=== PATIENT | female | born 1935 | race Caucasian/White ===

== ENCOUNTER 2018-12-16 12:13 | Inpatient (IN) | payer MEDICARE ==
[~2018-12-16] VITALS: Ht 152.4 cm; Wt 67.9 kg
[2018-12-16] MEDS ORDERED: SOD CHLORIDE 0.9% 1,000 ML IV STA (13:05)
[2018-12-16] MEDS ORDERED: OLME40TA13 PO (13:43)
[2018-12-16] MEDS ORDERED: SIMV20TA PO (13:44)
[2018-12-16] MEDS ORDERED: METO-336 PO (13:44)
[2018-12-16] MEDS ORDERED: LEVO75TA5 PO (13:44)
--- NOTE | 2018-12-16 15:46 | ERD ---
ER Documentation Chief Complaint Chief Complaint R droop x 3 days, L arm weakness, and dizzy hx bells palsey HPI This is a 83-year-old female who is complaining of left facial weakness and slurred speech. The patient says she has a history of chronic permanent right- sided Chapin's palsy, she said 3 days ago she woke up and she had weakness in the left face but no extremity symptoms and it seems like she had slurry speech. She lives alone. Her friend came over to visit her to check on her, and noticed that her face was weak and that she was not moving her left arm however the patient denies any weakness or numbness in her extremities. Denies any headache. Denies any fall or trauma or syncope ROS All systems reviewed and are negative except as per history of present illness. Medications Home Meds Reported Medications Metoprolol Succinate* (Toprol XL*) 100 Mg Tab.sr.24h, 100 MG PO DAILY, #30 TAB 12/16/18 Simvastatin* (Zocor*) 20 Mg Tablet, 20 MG PO QHS, #30 TAB 12/16/18 Levothyroxine Sodium* (Levothyroxine Sodium*) 75 Mcg Tablet, 75 MCG PO BEFORE BREAKFAST, #30 TAB 12/16/18 Olmesartan Medoxomil (Benicar) 40 Mg Tablet, 40 MG PO DAILY, #30 TAB 12/16/18 Allergies Allergies: Coded Allergies: No Known Allergy (Unverified , 12/16/18) PMhx/Soc History of Surgery: Yes (Alejandra MENDEZ (1991)) Anesthesia Reaction: No Hx Neurological Disorder: Yes (BELLS PALSY) Hx Respiratory Disorders: No Hx Psychiatric Problems: No Hx Miscellaneous Medical Probl: Yes (HYPOTHYROIDISM) Hx Alcohol Use: No Hx Substance Use: No Hx Tobacco Use: No Smoking Status: Never smoker FmHx Family History: No coronary disease Physical Exam Vitals Vital Signs Date Temp Pulse Resp B/P (MAP) Pulse Ox O2 O2 Flow FiO2 Time Delivery Rate 12/16/18 60 14 162/83 100 Room Air 13:14 (109) 12/16/18 98.1 60 16 154/82 96 12:18 (106) Physical Exam Const: Well-developed, well-nourished Head: Atraumatic, normocephalic Eyes: Normal Conjunctiva, PERRLA, EOMI, normal sclera, no nystagmus ENT: Normal External Ears, Nose and Mouth, moist mucus membranes. Neck: Full range of motion. No meningismus, no lymphadenopathy. Resp: Clear to auscultation bilaterally, no wheezing, rhonchi, rales Cardio: Regular rate and rhythm, no murmurs, S1 S2 present Abd: Soft, non tender x 4, non distended. Normal bowel sounds, no guarding or rebound, no pulsitile abdominal masses or bruits Skin: No petechiae or rashes, no ecchymosis , no maculopapular rash Back: No midline or flank tenderness Ext: No cyanosis, or edema, FROM x 4, right face paralysis, left face is as if her left side is stuck in a half smile position she is unable to pucker up or really smile any further. She does have some dysarthria but it may be due to facial positioning, neurovascularly intact x 4 Neur: Awake and alert, STR 5/5 x 4, sensation intact x 4, no focal findings, cerebellum intact Psych: Normal Mood and Affect Result Diagram: 12/16/18 1303 12/16/18 1303 Results 24 hrs Laboratory Tests Test 12/16/18 13:03 White Blood Count 8.1 10^3/ul Red Blood Count 4.40 10^6/ul Hemoglobin 12.4 g/dl Hematocrit 38.0 % Mean Corpuscular Volume 86.4 fl Mean Corpuscular Hemoglobin 28.2 pg Mean Corpuscular Hemoglobin Concent 32.6 g/dl Red Cell Distribution Width 14.4 % Platelet Count 177 10^3/UL Mean Platelet Volume 11.5 fl Immature Granulocytes % 0.400 % Neutrophils % 54.3 % Lymphocytes % 27.8 % Monocytes % 10.7 % Eosinophils % 5.8 % Basophils % 1.0 % Nucleated Red Blood Cells % 0.0 /100WBC Immature Granulocytes # 0.030 10^3/ul Neutrophils # 4.4 10^3/ul Lymphocytes # 2.3 10^3/ul Monocytes # 0.9 10^3/ul Eosinophils # 0.5 10^3/ul Basophils # 0.1 10^3/ul Nucleated Red Blood Cells # 0.0 10^3/ul Sodium Level 143 mmol/L Potassium Level 4.3 mmol/L Chloride Level 110 mmol/L Carbon Dioxide Level 23 mmol/L Anion Gap 10 Blood Urea Nitrogen 23 mg/dl Creatinine 0.87 mg/dl Est Glomerular Filtrat Rate mL/min mL/min Glucose Level 92 mg/dl Calcium Level 9.4 mg/dl Total Bilirubin 0.7 mg/dl Direct Bilirubin 0.00 mg/dl Indirect Bilirubin 0.7 mg/dl Aspartate Amino Transf (AST/SGOT) 34 IU/L Alanine Aminotransferase (ALT/SGPT) 29 IU/L Alkaline Phosphatase 43 IU/L Total Protein 7.4 g/dl Albumin 4.3 g/dl Globulin 3.10 g/dl Albumin/Globulin Ratio 1.38 Current Medications Medications Dose Sig/Alistair Start Time Status Last (Trade) Ordered Route PRN Stop Time Admin Dose Reason Admin Sodium 1,000 ml @ Q1H STAT 12/16/18 DC 12/16/18 Chloride 1,000 mls/hr IV 13:05 13:13 12/16/18 14:04 Procedures/[place] [id number] Radiology Main Line: [phone] DIAGNOSTIC IMAGING REPORT Patient: JOE GOSS : 1935 Age: 83 Sex: F MR #: [id number] DOS: 12/16/18 1305 Ordering MD: MAYO ENRIQUEZ DO Location: E/R Room/Bed: PROCEDURE: CT Brain without contrast. CLINICAL INDICATION: Speech difficulties with left-sided weakness. TECHNIQUE: A CT of the brain was performed on a multi-slice CT scanner utiliz ing axial imaging from the skull base through the vertex without intravenous contrast. Multiplanar reformatted images were made. One or more the following dose reduction techniques were utilized: Automated exposure control, adjustment of the mA/ or kV according to patient's size, or use of iterative reconstruction technique. DICOM images are available for review. The CTDIvol is 39.6 mGy and the DLP is 555 mGycm. COMPARISON: None. FINDINGS: There is no intracranial hemorrhage, mass effect, or midline shift. No extra- axial fluid collection is seen. Mild to moderate atrophy is identified with central predominance. Moderate decreased attenuation is seen in the periventricular and deep white matter, compatible with microvascular ischemic disease. The rivas white matter differentiation is well preserved with no acute infarct detected. The osseous structures and visualized paranasal sinuses are unremarkable. IMPRESSION: 1. No evidence of acute intracranial pathology. 2. Mild to moderate diffuse atrophy with central predominance. 3. There is moderate microvascular ischemic disease in the periventricular and deep white matter. RPTAT: HJAH .Ashley Florian MD, Date Time Electronically viewed and signed by .Ashley Florian MD, on 12/16/2018 13:51 .H/ CC: MAYO ENRIQUEZ DO [id number] [place] [id number] Radiology Main Line: [phone] DIAGNOSTIC IMAGING REPORT Patient: JOE GOSS : 1935 Age: 83 Sex: F MR #: [id number] DOS: 12/16/18 1305 Ordering MD: MAYO ENRIQUEZ DO Location: E/R Room/Bed: PROCEDURE: XR Chest. CLINICAL INDICATION: Possible Stroke, stroke like symptoms. TECHNIQUE: Single view chest x-ray. COMPARISON: None. FINDINGS: Lines/Tubes: None. Low lung volumes accentuate the cardiac silhouette. Aortic atherosclerosis. Bibasilar subsegmental atelectasis. No pleural effusions or pneumothorax. Right axillary surgical clips. Degenerative changes of the osseous structures. IMPRESSION: 1. Low lung volumes with bibasilar subsegmental atelectasis. 2. Aortic atherosclerosis RPTAT: EE Physician Walter Date Time Electronically viewed and signed by Physician Walter on 12/16/2018 13:59 RP/ CC: MAYO ENRIQUEZ DO [id number] EKG: Rate/Rhythm: Sinus bradycardia QRS, ST, QT: NORMAL CT, QRS, QT] Impression: Sinus bradycardia Patient is going for MRI now. I spoke with Dr. Lepe will admit to the hospital. She has likely had a stroke 3 days ago causing some left facial symptoms. She is not a TPA candidate due to onset of symptoms over 3 days ago Departure Diagnosis: Primary Impression: Weakness on left side of face Condition: Stable MAYO ENRIQUEZ DO Dec 16, 2018 15:46
[2018-12-16] MEDS ORDERED: ONDANSETRON 4 MG INJ IV PRN (16:00)
[2018-12-16] MEDS ORDERED: ACETAMINOPHEN 325 MG TAB PO PRN (16:00)
[2018-12-16 17:30] VITALS: Ht 152.4 cm; Wt 67.9 kg
[2018-12-16 17:41] VITALS: PULSE 58
--- NOTE | 2018-12-16 19:35 | HP ---
Date/Time of Note Date/Time of Note DATE: 12/16/18 TIME: 19:27 Assessment/Plan VTE Prophylaxis SCD applied (from Nsg): Yes Pharmacological prophylaxis: heparin Lines/Catheters IV Catheter Type (from Nrsg): Saline Lock Assessment/Plan Hospital Course Appears comfortable Ple[place], no distress L sided facial droop/paralysis present Gait normal Strength 5/5 in b/l UEs and b/l LEs SILT RRR CTAB Soft nt nd A/P: 83 yo female with h/o hypertension, DMII and bells palsy who presents with L sided facial paralysis suggestive of bells palsy - Brain MRI is negative for acute CVA - MRA does reveal focal stenoses - This is most likely [place] palsy and will treat accordingly - > 60 mg prednisone x 1 week, valacyclovir 1000 TID - Neurologist Dr Nelson consulted Hypertension: - Continue Toprol 100 Hyperlididemia: - Continue simvastatin Likely dc home tomorrow Result Diagram: 12/16/18 1303 12/16/18 1303 Results 24hrs Laboratory Tests Test 12/16/18 13:03 White Blood Count 8.1 Red Blood Count 4.40 Hemoglobin 12.4 Hematocrit 38.0 Mean Corpuscular Volume 86.4 Mean Corpuscular Hemoglobin 28.2 L Mean Corpuscular Hemoglobin Concent 32.6 Red Cell Distribution Width 14.4 Platelet Count 177 Mean Platelet Volume 11.5 H Immature Granulocytes % 0.400 Neutrophils % 54.3 Lymphocytes % 27.8 Monocytes % 10.7 Eosinophils % 5.8 Basophils % 1.0 Nucleated Red Blood Cells % 0.0 Immature Granulocytes # 0.030 Neutrophils # 4.4 Lymphocytes # 2.3 Monocytes # 0.9 Eosinophils # 0.5 Basophils # 0.1 Nucleated Red Blood Cells # 0.0 Sodium Level 143 Potassium Level 4.3 Chloride Level 110 Carbon Dioxide Level 23 Anion Gap 10 Blood Urea Nitrogen 23 H Creatinine 0.87 Est Glomerular Filtrat Rate mL/min Glucose Level 92 Calcium Level 9.4 Total Bilirubin 0.7 Direct Bilirubin 0.00 Indirect Bilirubin 0.7 Aspartate Amino Transf (AST/SGOT) 34 Alanine Aminotransferase (ALT/SGPT) 29 Alkaline Phosphatase 43 Total Protein 7.4 Albumin 4.3 Globulin 3.10 Albumin/Globulin Ratio 1.38 HPI/ROS Admit Date/Time Admit Date/Time Dec 16, 2018 at 15:41 Hx of Present Illness 83 yo female with h/o hypertension, hypothyroid and bells palsy presents wtih 3 days L facial paralysis Patient says 5 years ago she got bells palsy on L side of face. Got better but sounds like never fully recovered. Over past 3 days she has developed recurrence of L sided facial paralysis from forehead to chin. This accompanied by dysarthria and gait imbalance. No weakness or numbness in extremities. Came to ED for evaluation where brain MRI is without CVA. Lives alone and scared to go home ROS Constitutional: no complaints, improved Eyes: no complaints ENT: no complaints Respiratory: no complaints Cardiovascular: no complaints Gastrointestinal: no complaints Genitourinary: no complaints Musculoskeletal: no complaints Skin: no complaints Neurologic: no complaints Endocrine: no complaints Lymphatic: no complaints Psychological: no complaints, nl mood/affect Immunologic: no complaints PMH/Family/Social Past Medical History Medical History: hypertension Coded Allergies: No Known Allergy (Unverified , 12/16/18) Past Surgical History Past Surgical Hx: no surgical history Social History Alcohol Use: none Smoking Status: Former smoker Drug Use: none Exam/Review of Systems Vital Signs Vitals Vital Signs Date Temp Pulse Resp B/P (MAP) Pulse Ox O2 O2 Flow FiO2 Time Delivery Rate 12/16/18 58 17:41 12/16/18 18 143/67 97 Room Air 16:58 (92) 12/16/18 98.1 12:18 PAOLA MILTON MD Dec 16, 2018 19:35
[2018-12-16 19:37] VITALS: BP 147/62; PULSE 53; RESP 18
[2018-12-16 20:00] VITALS: PULSE 63
[2018-12-16] MEDS: predniSONE 20 MG TAB PO SCH (20:52)
[2018-12-16] MEDS: valACYclovir 500 MG TAB PO SCH (21:00)
[2018-12-17] VITALS: PULSE 58
[2018-12-17 04:00] VITALS: PULSE 53
[2018-12-17] MEDS ORDERED: LEVOTHYROXINE 75 MCG TAB PO SCH (07:00)
[2018-12-17 07:27] VITALS: BP 125/85; PULSE 76; RESP 18
[2018-12-17 08:01] VITALS: PULSE 68
[2018-12-17] MEDS ORDERED: METOPROLOL (XL) 100 MG TAB PO SCH (09:00)
[2018-12-17] MEDS ORDERED: ASPIRIN (EC) 325 MG TAB PO STA (09:19)
--- NOTE | 2018-12-17 09:21 | CONSI ---
Assessment/Plan Assessment/Plan Assessment/Plan (Recall) 83 F c/ reported prior Hx of Chapin's palsy, who presents for evaluation of worsened face weakness. The clinical picture was concerning for acute ischemia; however, MRI brain is reassuringly negative for the same. Of note, MRA head is notable for multi-focal stenoses in the posterior circulation. Clinical worsening following prior Chapin's palsy could, in theory, be attributable to a acute systemic illness.. 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 P: Add asa daily given cerebrovascular disease Add UA, UDS [place] as necessary Limit sedating medications where possible Other medical management and supportive care per primary Consultation Date/Type/Reason Admit Date/Time Dec 16, 2018 at 15:41 Type of Consult Neurology Reason for Consultation Left face weakness Requesting Provider: PAOLA MILTON MD Date/Time of Note DATE: 12/17/18 TIME: 09:07 Hx of Present Illness 83 F c/ prior Hx fo Chapin's palsy and other comorbidities, who presents for evaluation of worsened face weakness. She is a somewhat poor historian... but notes she was out wit her friend, who became worried that her face looked worse, and insisted she get checked out. She denies other acute neurologic Sx at this time. 12 PT ROS ow neg Objective Exam Vitals Vital Signs Date Temp Pulse Resp B/P (MAP) Pulse Ox O2 O2 Flow FiO2 Time Delivery Rate 12/17/18 68 08:01 12/17/18 Room Air 07:30 12/17/18 97.9 18 125/85 97 07:27 (98) Intake and Output 12/16/18 12/16/18 12/17/18 1515:00 23:00 07:00 IntakeIntake Total 300 ml BalanceBalance 300 ml Exam PE: Gen Appearance: No Apparent Distress HEENT: Normocephalic Cardiovascular: Regular rate Lungs: Clear bilaterally Abdomen: Soft Extremities: Dry NE: The patient was alert and oriented. Language was normal. Fund of knowledge was somewhat limited.. Pupils were equal and reactive to light. There was no afferent pupillary defect. Visual rice were normal. Funduscopic examination was limited. Extra-ocular movements were full. Ptosis was absent. There was no nystagmus. Facial sensation was normal. Face was asymmetric with weakness of the right.. Hearing was intact. Palate movements were normal. Neck strength was normal. There was normal tongue bulk and speed of movement. Tone was normal. Muscle bulk was normal. I did not see fasciculations. Arms and legs were strong. Vibration sensation was normal. Temperature and pinprick sensation was normal. Rapid alternating movements were normal. There was no dysmetria. There was no intention tremor. Gait was deferred due to bedrest. Arm and leg reflexes were symmetric. Maddox's sign was absent. Plantar responses were flexor. Results Result Diagram: 12/16/18 1303 12/16/18 1303 Results 24hrs Laboratory Tests Test 12/16/18 13:03 White Blood Count 8.1 Red Blood Count 4.40 Hemoglobin 12.4 Hematocrit 38.0 Mean Corpuscular Volume 86.4 Mean Corpuscular Hemoglobin 28.2 L Mean Corpuscular Hemoglobin Concent 32.6 Red Cell Distribution Width 14.4 Platelet Count 177 Mean Platelet Volume 11.5 H Immature Granulocytes % 0.400 Neutrophils % 54.3 Lymphocytes % 27.8 Monocytes % 10.7 Eosinophils % 5.8 Basophils % 1.0 Nucleated Red Blood Cells % 0.0 Immature Granulocytes # 0.030 Neutrophils # 4.4 Lymphocytes # 2.3 Monocytes # 0.9 Eosinophils # 0.5 Basophils # 0.1 Nucleated Red Blood Cells # 0.0 Sodium Level 143 Potassium Level 4.3 Chloride Level 110 Carbon Dioxide Level 23 Anion Gap 10 Blood Urea Nitrogen 23 H Creatinine 0.87 Est Glomerular Filtrat Rate mL/min Glucose Level 92 Calcium Level 9.4 Total Bilirubin 0.7 Direct Bilirubin 0.00 Indirect Bilirubin 0.7 Aspartate Amino Transf (AST/SGOT) 34 Alanine Aminotransferase (ALT/SGPT) 29 Alkaline Phosphatase 43 Total Protein 7.4 Albumin 4.3 Globulin 3.10 Albumin/Globulin Ratio 1.38 Past Medical History Medical History: hypertension Home Meds Reported Medications Metoprolol Succinate* (Toprol XL*) 100 Mg Tab.sr.24h, 100 MG PO DAILY, #30 TAB 12/16/18 Simvastatin* (Zocor*) 20 Mg Tablet, 20 MG PO QHS, #30 TAB 12/16/18 Levothyroxine Sodium* (Levothyroxine Sodium*) 75 Mcg Tablet, 75 MCG PO BEFORE BREAKFAST, #30 TAB 12/16/18 Olmesartan Medoxomil (Benicar) 40 Mg Tablet, 40 MG PO DAILY, #30 TAB 12/16/18 Medications Current Medications Prednisone (Prednisone) 60 mg DAILY PO Last administered on 12/16/18at 20:52; Admin Dose 60 MG; Start 12/16/18 at 20:00 Valacyclovir HCl (Valtrex) 1,000 mg TID PO ; Start 12/16/18 at 21:00 Levothyroxine Sodium (Synthroid) 75 mcg BEFORE BREAKFAST PO Last administered on 12/17/18at 06:29; Admin Dose 75 MCG; Start 12/17/18 at 07:00 Metoprolol Succinate (Toprol Xl) 100 mg DAILY PO ; Start 12/17/18 at 09:00 Allergies: Coded Allergies: No Known Allergy (Unverified , 12/16/18) Past Surgical History Past Surgical Hx: no surgical history Social History Alcohol Use: none Smoking Status: Former smoker Drug Use: none THUY DAVIS Dec 17, 2018 09:17
[2018-12-17] MEDS: predniSONE 20 MG TAB PO SCH (09:41)
[2018-12-17] MEDS: valACYclovir 500 MG TAB PO SCH (09:43)
[2018-12-17] MEDS ORDERED: VALA500T PO (11:41)
[2018-12-17] MEDS ORDERED: PRED50TA PO (11:41)
--- NOTE | 2018-12-17 11:44 | PDOCDIS ---
Discharge Instructions DIAGNOSIS Discharge Diagnosis [place] Palsy CONDITION [id number] Patient Condition: [id number] Stable FOLLOW UP/APPOINTMENTS Follow-up Plan Take your medications as prescribed I have prescribed you 5 days of antiinflammatory medication (prednisone) and 7 days of antiviral medication (valacyclovir) for your bells palsy You can make an appointment to see a neurologist in the coming weeks to monitor your illness. Dr Nelson's office number is PAOLA MILTON MD Dec 17, 2018 11:44
--- NOTE | 2018-12-17 13:47 | DS ---
Date/Time of Note Date/Time of Note DATE: 12/17/18 TIME: 13:46 Discharge Summary Admission/Discharge Info Admit Date/Time Dec 16, 2018 at 15:41 Discharge Date/Time Dec 17, 2018 at 12:15 Discharge Diagnosis [place] Palsy Patient Condition: Stable Hx of Present Illness 83 yo female with h/o hypertension, hypothyroid and bells palsy presents wtih 3 days L facial paralysis Patient says 5 years ago she got bells palsy on L side of face. Got better but sounds like never fully recovered. Over past 3 days she has developed recurrence of L sided facial paralysis from forehead to chin. This accompanied by dysarthria and gait imbalance. No weakness or numbness in extremities. Came to ED for evaluation where brain MRI is without CVA. Lives alone and scared to go home Hospital Course 83 yo female with h/o hypertension, DMII and bells palsy who presents with L sided facial paralysis suggestive of bells palsy - Brain MRI is negative for acute CVA - MRA does reveal focal stenoses - This is most likely [place] palsy and will treat accordingly - > 60 mg prednisone x 1 week, valacyclovir 1000 TID - Neurologist Dr Nelson consulted Hypertension: - Continue Toprol 100 Hyperlididemia: - Continue simvastatin Home Meds Active Scripts Prednisone* (Prednisone*) 50 Mg Tablet, 50 MG PO DAILY for 5 Days, #5 TAB Prov:PAOLA MILTON MD 12/17/18 valAcyclovir Hcl* (valACYclovir Hcl*) 500 Mg Tablet, 500 MG PO TID for 7 Days, #21 TAB Prov:PAOLA MILTON MD 12/17/18 Reported Medications Metoprolol Succinate* (Toprol XL*) 100 Mg Tab.sr.24h, 100 MG PO DAILY, #30 TAB 12/16/18 Simvastatin* (Zocor*) 20 Mg Tablet, 20 MG PO QHS, #30 TAB 12/16/18 Levothyroxine Sodium* (Levothyroxine Sodium*) 75 Mcg Tablet, 75 MCG PO BEFORE BREAKFAST, #30 TAB 12/16/18 Olmesartan Medoxomil (Benicar) 40 Mg Tablet, 40 MG PO DAILY, #30 TAB 12/16/18 Follow-up Plan Take your medications as prescribed I have prescribed you 5 days of antiinflammatory medication (prednisone) and 7 days of antiviral medication (valacyclovir) for your bells palsy You can make an appointment to see a neurologist in the coming weeks to monitor your illness. Dr Nelson's office number is Primary Care Provider PAOLA Youssef MD Dec 17, 2018 13:46
[2018-12-18] MEDS ORDERED: ASPIRIN (EC) 81 MG TAB PO SCH (09:00)
== END 2018-12-17 12:15 | disposition home or self-care (01) | DRG 74 ==
LOC: E/R 12:13 → 6WM 15:41 → EDBEDREQ 17:18
PROVIDERS: ADMIT Internal Medicine; ATTEND Internal Medicine
DX: G51.0 Bell's palsy (principal)
CPT/HCPCS: 36415; 70450; 70544; 70551; 71045; 80053; 80307; 81003; 85025; 93005; J7030; J7512